=== PATIENT | female | born 1995 ===

== ENCOUNTER 2019-11-15 09:17 | Inpatient (IN) | payer MEDICAID ==
[2019-11-15] VITALS (40 sets, daily range): BP systolic 88–143; BP diastolic 50–84; PULSE 73–102; TEMP 97.5–98.9
[~2019-11-15] VITALS: Ht 154.9 cm; Wt 72.3 kg
--- NOTE | 2019-11-15 10:10 | NUR ---
Patient ambulatory off of unit with FOB at side. Patient direct admit from office for SROM. Patient oriented to room, changes into gown. Plan of care discussed. Reports SROM of clear fluid at 0600 this morning. Reports good movement. Denies vaginal bleeding or contractions. EFMs on. VS taken. IV started. Assessment completed. Consents signed.
[2019-11-15] MEDS ORDERED: PREDNISONE 5MG5 MG PO (10:18)
[2019-11-15] MEDS ORDERED: PRENATAL VITAMI1 TA3 PO (10:18)
[2019-11-15] MEDS ORDERED: PLAQUENIL 200M200 MG PO (10:18)
[2019-11-15] MEDS ORDERED: NATURAL IRON65 MG PO (10:19)
--- NOTE | 2019-11-15 10:45 | NUR ---
Patient requests to ambulate within room. EFMs off.
[2019-11-15 10:56] LABS: HEMOGLOBIN 11.5 g/dl (12.5-16.0); MEAN CELL VOLUME 90 fl (80.0-100.0); MEAN CORPUSCULAR HEMOGLOBIN 31 pg (27.0-31.0); MEAN CORPUSCULAR HGB CONC 35 g/dl (33.0-37.0); MEAN PLATELET VOLUME 10.9 fl (7.4-10.4); PLATELET COUNT 198 K/mm3 (130-400); REDCELL DISTRIBUTION WIDTH-CV 12.1 % (11.5-14.5)
[2019-11-15 11:02] LABS: HEMATOCRIT 33.3 % (37.0-47.0)
[2019-11-15 11:03] LABS: ALBUMIN 3.1 gm/dL (3.5-5.0); BILIRUBIN,TOTAL 0.4 mg/dL (0.0-1.0); CALCIUM 8.7 mg/dL (8.4-10.2); CREATININE, serum 0.44 (0.52-1.25); POTASSIUM 3.8 mmol/L (3.4-5.0); TOTAL PROTEIN 6.2 gm/dL (6.4-8.2)
[2019-11-15 11:56] LABS: BAND 1 % (0-10); LYMPHOCYTE 17 % (20.0-51.0); METAMYELOCYTE 1 % (0-0); NEUTROPHILS 77 % (42.0-75.2); PLATELET ESTIMATE NORMAL (NORMAL)
--- NOTE | 2019-11-15 12:00 | NUR ---
SVE /-2, clear fluid noted with exam. Patient up to ambulate within room.
--- NOTE | 2019-11-15 12:35 | NUR ---
Patient back to bed from ambulating. EFMs on, VS taken. Jello given.
--- NOTE | 2019-11-15 13:00 | NUR ---
EFMs off. Patient reports feeling occasional contraction. Patient up to ambulate in hallway again.
--- NOTE | 2019-11-15 13:35 | NUR ---
Patient returns to bed. SVE unchanged at this time. updated. Patient updated to plan of care and order to start Pitocin. Questions answered. Verbalizes understanding. Pitocin started at 1345 per orders.
--- NOTE | 2019-11-15 14:15 | NUR ---
Difficulty monitoring FHR due to maternal position on birthing ball.
--- NOTE | 2019-11-15 17:10 | NUR ---
to bedside. SVE /-2 per provider. Patient returns to standing at bedside. States contractions are increasing in pain but denies need for pain intervention at this time. FOB at bedside. Call light within reach.
--- NOTE | 2019-11-15 18:15 | NUR ---
Report to Corey HERNANDEZ to assume care of patient at this time.
[2019-11-16] VITALS (28 sets, daily range): BP systolic 93–152; BP diastolic 52–121; PULSE 73–130; TEMP 97.3–99.1
--- NOTE | 2019-11-16 | NUR ---
1814- Bedside report from MARY [place]. Pitocin infusing at 18mU per protocol. MD on unit. [id number]- Patient standing at edge of bed. FHR tracing intermittently. 1929- SVE 4/70/-2 by this RN. on unit and updated. 2129- SVE 4-5/70/-2 by this RN. 2229- Patient is requesting an epidural. OLGA Holman notified. 2249- See Physician Notification. MD on unit. 2304- OLGA Holman at bedside. Patient repositioned to sitting upright for epidural placement. 231- Test Dose. See Anesthesia Notification. 2330- Patient tolerated procedure well and is resting in bed. Patient reports feeling tired but has no complaints of N/V, dizziness, or lightheadedness. BP lower than baseline. OLGA Holman notified. 0030- Billingsley catheter placed. SVE 5-6/80/-2 with bloody show. 0045- MD on unit and updated. MD visits with patient and discussed plan of care. No new orders.
--- NOTE | 2019-11-16 04:00 | NUR ---
0230- SVE Complete/0. Patient repostioned to sitting upright in pricess position to labor down. Plan of care discussed. 0330- SVE Complete/+1. Patient begins pushing intermittently with contractions with RN. Patient able to move vertex well with pushes. 0335- See Physician Notification. 0350- at bedside. Billingsley catheter removed. Minimal output noted. MD notified. Will continue to monitor intake and output. 0400- Patient begins pushing with contractions with . 0410- of viable baby girl. Pitocin off. Cord clamped and cut by FOB. Cord blood obtained. NB care assumed by Karen Burris RN. 0413- Spontaneous delivery of intact placenta. Pitocin infusing at 333 ml/hr per protocol. Right labial laceration repaired by . Straight catheter perfomed by RN. 25ml out. Pericare completed. Ice pack applied.
--- NOTE | 2019-11-16 07:15 | NUR ---
0715- Pt ambulates to bathroom independently with standby assist x1. Voids without difficulty 600ml. Pericare explained and completed. Ice pack and underwear on. Clean gown on. Pt ambulates to room well. Pt and spouse oriented to room. Baby at bedside. Call light within reach.
[2019-11-16] MEDS ORDERED: IBU600 MG PO (08:03)
[2019-11-17] VITALS: BP 113/70; PULSE 78; TEMP 98.6
[2019-11-17 04:00] VITALS: BP 127/77; PULSE 73; TEMP 98.5
[2019-11-17 09:15] VITALS: BP 119/69; PULSE 94; TEMP 97.9
[2019-11-17 09:39] LABS: BASO % 0.3 % (0.0-2.0); EOS # 0.1 (0.0-0.7); EOS % 0.5 % (0-4.0); GRAN # 8.1 (1.4-6.5); GRAN % 70.9 % (42.2-75.2); HEMOGLOBIN 10.5 g/dl (12.5-16.0); LYMPH # 2.4 (1.2-3.4); LYMPH % 21.2 % (20.0-51.0); MEAN CELL VOLUME 92 fl (80.0-100.0); MEAN CORPUSCULAR HEMOGLOBIN 31 pg (27.0-31.0); MEAN CORPUSCULAR HGB CONC 34 g/dl (33.0-37.0); MEAN PLATELET VOLUME 11.4 fl (7.4-10.4); MONO # 0.7 (0.1-0.6); PLATELET COUNT 201 K/mm3 (130-400); RED BLOOD COUNT 3.36 M/mm3 (4.10-5.30); REDCELL DISTRIBUTION WIDTH-CV 12.6 % (11.5-14.5)
[2019-11-17 09:40] LABS: HEMATOCRIT 30.9 % (37.0-47.0)
[2019-11-17 09:49] LABS: ALBUMIN 2.6 gm/dL (3.5-5.0); BILIRUBIN,TOTAL 0.2 mg/dL (0.0-1.0); CALCIUM 8.2 mg/dL (8.4-10.2); CREATININE, serum 0.51 (0.52-1.25); POTASSIUM 3.7 mmol/L (3.4-5.0); TOTAL PROTEIN 5.2 gm/dL (6.4-8.2)
== END 2019-11-17 12:50 | disposition home or self-care (01) | DRG 807 ==
LOC: LDR 09:17 → OB 10:20
PROVIDERS: Obstetrics & Gynecology; ADMIT Obstetrics & Gynecology
PROC: 10E0XZZ Delivery of Products of Conception, External Approach (ICD-10-PCS; principal; 2019-11-15)
PROC: 0UQMXZZ Repair Vulva, External Approach (ICD-10-PCS; 2019-11-15)
DX: O10.92 Unspecified pre-existing hypertension complicating childbirth (principal); Z37.0 Single live birth; O99.284 Endocrine, nutritional and metabolic diseases complicating childbirth; Z3A.37 37 weeks gestation of pregnancy; O75.89 Other specified complications of labor and delivery; M32.14 Glomerular disease in systemic lupus erythematosus; E03.9 Hypothyroidism, unspecified; O70.0 First degree perineal laceration during delivery
CPT/HCPCS: J2590; J7120; J7512